=== PATIENT | female | born 1965 | race Caucasian/White ===

== ENCOUNTER 2020-09-06 11:55 | Outpatient (CLI) | payer OTHER, SELFPAY ==
--- NOTE | 2020-09-06 12:00 | MM_ITS ---
WS: [id number] BILATERAL SCREENING DIGITAL MAMMOGRAM WITH CAD HISTORY: SCREENING COMPARISON: 10/22/2017 and 10/08/2017 Bilateral CC and MLO views submitted. Computer aided detection analyzed. Breast composition: There are scattered areas of fibroglandular density. No suspicious masses, microc alcifications or architectural distortion. Asymmetric fibroglandular tissue in the LEFT breast. No fulton spicious masses or interval change. MM/[id number] IMPRESSION: BI-RADS: 2-Benign FOLLOW UP: 1 Year Follow-up
== END 2020-09-06 11:56 | disposition home or self-care (01) ==
LOC: RADSHAW 12:00
PROVIDERS: PCP Nurse Practitioner Family; Visit Provider Nurse Practitioner Family
DX: Z12.31 Encounter for screening mammogram for malignant neoplasm of breast (principal)
CPT/HCPCS: 77067

== ENCOUNTER 2022-01-02 01:01 | Observation (INO) | payer OTHER, SELFPAY ==
[2022-01-02] VITALS (10 sets, daily range): BP systolic 105–140; BP diastolic 58–94; PULSE 58–86; RESP 14–24; TEMP 36.6–36.7; O2SAT 95–97; BMI 36.8
--- NOTE | 2022-01-02 01:42 | ECG_ITS ---
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 Measurements Intervals [place] Rate: 63 P: 51 MI: 145 QRS: 56 QRSD: 93 T: 14 QT: 390 QTc: 400 Interpretive Statements SINUS RHYTHM POSSIBLE LEFT ATRIAL ENLARGEMENT [-0.1mV P-WAVE IN V1/V2] No previous ECG available for comparison Electronically Signed On 01-02-2022 7:36:46 CDT by Anselmo Gil M.D. [email or web address]
--- NOTE | 2022-01-02 01:42 | USCV_ITS ---
Janelle Cain Age: 56 Gender: F : 1965 Exam Date: 01/02/2022 04:39 Ordering Phys: Lars Modi MD Technologist: Halima Duran [place] [facility] [place]ication: Afib BP: 119 / 67 HR: 64 Rhythm: Sinus Technical Quality: Adequate MEASUREMENTS (Male / Female) Normal Values 2D ECHO LV Diastolic Diameter PLAX 3.5 cm 4.2 - 5.9 / 3.9 - 5.3 cm LV Systolic Diameter PLAX 2.7 cm LV Chamber Size 3.0 cm IVS Diastolic Thickness 1.1 cm 0.6 - 1.0 / 0.6 - 0.9 cm IVS Systolic Thickness 1.0 cm LVPW Diastolic Thickness 1.4 cm 0.6 - 1.0 / 0.6 - 0.9 cm LVPW Systolic Thickness 1.3 cm RV Chamber Size 3.6 cm LVOT Diameter 2.0 cm LV Ejection Fraction 2D Teich 49.3 % LV Ejection Fraction MOD 2C 74.0 % LV Ejection Fraction 2C AL 75.3 % LA Diameter 2.8 cm LA Width 2.6 cm LA Height 3.7 cm RA Width 3.1 cm RA Height 2.9 cm Aorta at Sinotubular Diameter 3.1 cm IVC Diameter 1.5 cm M-MODE Aortic Annulus Diameter 2.9 cm LA Ao Ratio MM 1.0 MV E Point Septal Separation 0.3 cm DOPPLER AV Peak Velocity 145.0 cm/s LVOT Peak Velocity 128.0 cm/s AV Area Cont Eq vti 3.5 cm squared AV Area Cont Eq pk 2.8 cm squared MV Area PHT 2.9 cm squared Mitral E to A Ratio 1.4 MV E' Velocity 57.0 cm/s Mitral E to MV E' Ratio 10.3 Mitral E to LV E' Lateral Ratio 8.9 Mitral E to LV E' Septal Ratio 12.1 TR Peak Velocity 161.3 cm/s TR Peak Gradient 10.4 mmHg TR Mean Velocity 110.5 cm/s TR Mean Gradient 5.6 mmHg TR Velocity Time Integral 37.9 cm TV Peak E Velocity 67.0 cm/s Right Atrial Pressure 3.0 mmHg Pulmonary Artery Systolic Pressu 13.4 mmHg RV Acceleration Time 0.1 s RV Ejection Time 0.3 s RV AcT/ET 0.4 FINDINGS Left Ventricle Normal left ventricular size, systolic function and wall thickness, with no regional wall motion abnormalities. Normal left ventricular wall thickness. Normal diastolic filling pattern. Left ventricular ejection fraction is estimated at 65 %. Right Ventricle The right ventricle is normal in size and function. Right Atrium The right atrium is normal in size. Left Atrium The left atrium is normal in size. Mitral Valve Structurally normal mitral valve without significant stenosis or prolapse. There is no mitral regurgitation. Aortic Valve Structurally normal aortic valve without significant sclerosis or stenosis. There is no aortic regurgitation. Tricuspid Valve Structurally normal tricuspid valve without significant stenosis or regurgitation. Pulmonary artery systolic pressure is normal. Pulmonic Valve Structurally normal pulmonic valve without significant stenosis. There is no pulmonic regurgitation. Pericardium Normal pericardium without effusion. Aorta Normal ascending aorta dimension. IVC The inferior vena cava appears normal. CONCLUSIONS Normal transthoracic echocardiogram. There are no prior echocardiogram studies to compare. Dr. Anselmo Gil MD (Electronically Signed) Final Date: 02 January 2022 07:11 S
--- NOTE | 2022-01-02 01:45 | P.HP_ITS ---
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 Patient tells me that today at roughly 730, she developed chest palpitations, followed by diaphoresis, lightheadedness, denies passing out. 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 She has been having allergy-like symptoms and using Sudafed up to twice a day, she does report caffeine use, 1 large cup of coffee a day. Denies any history of hyperthyroidism, denies any history of drug use, denies a history of alcoholism. In the emergency room she was found to have A. fib with RVR, heart rates in the high 200s, no hemodynamic compromise was given adenosine, eventually placed on a Cardizem drip, and transferred to [facility] for evaluation. Currently she is converted to normal sinus rhythm, off Cardizem drip, alert oriented x3, heart rates in the 60s, atrial fibrillation, normotensive, denies any chest pain, palpitations, shortness of breath. Review of Systems Const: Denies: fever(s) Eyes: Denies: change in vision Card: Reports: palpitations; Denies: chest pain Resp: Denies: dyspnea GI: Denies: abdominal pain Musc: Denies: back pain Neuro: Denies: headache(s), numbness in extremities, weakness in extremities or difficulty walking Medications/Allergies Home Medications Medication Instructions Recorded Confirmed Last Taken Type amoxicillin 875 mg-potassium 1 tab PO BID 01/02/22 01/02/22 Unknown History clavulanate 125 mg tablet doxycycline hyclate 50 mg tablet 50 mg PO DAILY 01/02/22 01/02/22 Unknown History hydrochlorothiazide 12.5 mg tablet 12.5 mg PO DIRECTED PRN 01/02/22 01/02/22 Unknown History Hypertension Allergies Allergy/AdvReac Type Severity Reaction Status Date / Time Sulfa (Sulfonamide Allergy Intermediate ALGY-Hives Verified 01/02/22 01:17 Antibiotics) PFSH Acute PFSH: Medical History (Updated 01/02/22 @ 01:49 by Lars Modi MD) History of obesity Hypertension Surgical History (Updated 01/02/22 @ 01:48 by Lars Modi MD) History of bladder surgery Family History (Updated 01/02/22 @ 01:49 by Lars Modi MD) Family/Other Diabetes Stroke Social History (Updated 01/02/22 @ 01:49 by Lars Modi MD) Smoking and tobacco status: never smoked Alcohol intake: current Alcohol intake frequency: few times a month Substance/Drug Use: never Vitals/I&O/Wt Weight last 48 hrs Weight 103.419 kg Physical Exam Const: COMMON NORMALS: no acute distress and patient oriented x3 HENMT: COMMON NORMALS: normocephalic HEAD & SCALP: normocephalic Neck/C-Spine: COMMON NORMALS: no JVD Resp: COMMON NORMALS: normal respiratory effort, No retractions, No use of accessory muscles and clear to auscultation bilaterally AUSCULTATION: clear to auscultation bilaterally Cardio: COMMON NORMALS: no JVD, regular rate, regular rhythm, S1 normal heart sound present and S2 normal heart sound present RATE: regular rate RHYTHM: regular rhythm HEART SOUNDS: S1 normal heart sound present and S2 normal heart sound present GI: COMMON NORMALS: Normal to inspection, nondistended, normoactive bowel sounds present, Soft to palpation, non-tender, No hepatosplenomegaly present, no masses and no bruits PALPATION: Yes Soft to palpation and Yes No hepatosplenomegaly present Extremity: COMMON NORMALS: capillary refill normal, no clubbing, cyanosis or edema, no calf tenderness and no pedal edema Neuro: COMMON NORMALS: patient oriented x3, CN's II-XII intact bilaterally and moves all extremities Psych: COMMON NORMALS: mental status grossly normal A&P Assessment and plan (1) New onset atrial fibrillation: Status: Acute Plan New onset atrial fibrillation -Etiology, potentially Sudafed use, caffeine use, stress -TSH was slightly high with normal T4 -Magnesium within normal limits -We will reorder troponin series, but troponin from [facility] was unremarkable -We will order cardiac echo -Currently converted to normal sinus rhythm, continue Cardizem 30 every 6 hours -She tells me that she is prehypertensive but she is had a couple of elevated blood pressures for which her primary care provider has been giving her hydrochlorothiazide intermittently, -Her [id number] score is 1-2 if she is hypertensive or not -We will start her on therapeutic Lovenox, switch to Eliquis on discharge -Needs to follow-up with cardiology as outpatient -Stop caffeine use, stop Sudafed use, decrease stress, consider stress test as outpatient -Full code -Lovenox for DVT prophylaxis Attestations Medical Necessity Statement*: Patient requires hospitalization, outpatient with observation, for new onset atrial fibrillation Coding Level of Care Code Acute [employer] for Lolita Pruitt Diagnoses New onset atrial fibrillation I48.91
[2022-01-02] MEDS: dilTIAZem 30 mg Tablet PO ×2 (02:19→08:59)
[2022-01-02] MEDS: acetaminophen 325 mg Tablet 650 MG PO ×2 (02:19→09:12)
[2022-01-02] MEDS: enoxaparin 100 mg/mL Syringe SUBCUT (02:20)
[2022-01-02 03:12] LABS: Troponin(5th) Baseline 16 ng/L (0-10)
[2022-01-02 03:21] LABS: Chol HDL Ratio 1.95 mg/dL (0.0-4.40); Cholesterol 125 mg/dL (0-200); HDL Cholesterol 64 mg/dL (60-100); LDL Cholesterol Calculated 47 mg/dL (50-129); LDL HDL Ratio 0.73 RATIO (0.00-3.22); NT Pro B Type Natriuretic Pept 355 pg/mL (0-125); Triglycerides 68 mg/dL (0-150)
[2022-01-02 03:46] LABS: Estmated Average Glucose 108; Hemoglobin A1C 5.4 % (4.0-6.0)
[2022-01-02 04:46] LABS: Troponin 5 2HR 16.13 ng/L (0-10)
[2022-01-02 04:48] LABS: Troponin 5 2HR Delta 0.13 ABS# (0-10)
--- NOTE | 2022-01-02 05:46 | ECG_ITS ---
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 Measurements Intervals [place] Rate: 62 P: 55 MI: 147 QRS: 63 QRSD: 97 T: 45 QT: 417 QTc: 424 Interpretive Statements SINUS RHYTHM Compared to ECG 01/02/2022 03:44:47 No significant changes Electronically Signed On 01-02-2022 7:40:07 CDT by Anselmo Gil M.D. [id number]
[2022-01-02 07:32] LABS: Add Urine Microscopic? NO; Charge for UA Resulting for Rev
[2022-01-02 07:37] LABS: Urine Appearance Clear (CLEAR); Urine Color Yellow (Yellow); pH Urine 6 (5-7)
[2022-01-02 07:38] LABS: Bilirubin Urine Neg (Negative); Blood Urine Neg (Negative); Glucose Urine UA Norm (Normal); Ketones Urine Negative (Negative); Leukocyte Esterase Urine Negative (Negative); Nitrate Urine Negative (Negative); Protein Urine Neg (Negative); Urobilinogen Urine Norm (Negative)
[2022-01-02] MEDS: pantoprazole DR 40 mg Tablet PO (08:59)
[2022-01-02 09:07] LABS: Troponin 5 6HR 10.97 ng/L (0-10)
[2022-01-02 09:10] LABS: Troponin 5 6HR Delta -5.03 ng/L (0-12)
--- NOTE | 2022-01-02 10:48 | ECG_ITS ---
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 Measurements Intervals [place] Rate: 64 P: 61 NH: 151 QRS: 62 QRSD: 98 T: 45 QT: 394 QTc: 409 Interpretive Statements SINUS RHYTHM POSSIBLE LEFT ATRIAL ENLARGEMENT [-0.1mV P-WAVE IN V1/V2] Compared to ECG 01/02/2022 05:46:31 No significant changes Electronically Signed On 01-02-2022 18:35:11 CDT by Andrew Villanueva M.D. [id number]
--- NOTE | 2022-01-02 11:49 | PC.NURSE ---
ambulation pt up and ambulating down hallway w/. Pt HR is Sinus rhythm HR-upper 80s. denies any pain or chest discomfort or shortness of breath. Dr Valentine notified.
--- NOTE | 2022-01-02 12:04 | PM.DCS ---
Discharge Providers Date of Admission: 01/02/22 01:01 Date of Discharge: January 02, 2022 Attending Provider at Admission: Lars Modi MD Attending Provider at Discharge: Yvette Valentine MD Primary Care Provider: Darby Delgadillo APN Diagnoses at Discharge Discharge Diagnosis (1) New onset atrial fibrillation: Status: Acute Reason for Visit Reason for Visit: afib rvr Brief History: Please see Dr. Modi's dictated H&P from last night at 1:45 AM. Hospital Course Hospital Course Patient was admitted to the hospital and underwent continuous telemetry monitoring. Since arrival to the floor, patient was noted to be in sinus rhythm. Heart rate has been ranging between 58 to 86 bpm. She has received 2 doses of 30 mg p.o. Cardizem 6 hours apart. Echocardiogram returned normal. Blood pressure in the hospital ranging between 1 20-1 40 systolic. Baseline troponin at 16, 2-hour at 16, 6-hour trending down at 10. Negative delta as. Denies any complains of chest pain. She feels well overall. Since her echocardiogram, troponins are reassuring, symptoms are resolved with no recurrence of A. fib, patient is stable for discharge at this time. An event monitor is being arranged at discharge. As needed hydrochlorothiazide has been discontinued. She is being started on Cardizem 60 mg p.o. twice daily (12-hour release) at discharge. Recommended to maintain a log of her blood pressure and heart rate by checking at least twice a day at the same time every day. Present this log to her primary care provider in 1 week. Instructed to stop pseudoephedrine use. May use Flonase intranasal spray for allergies as needed. Restrict caffeine intake to no more than 2 cups of 8 ounces a day. Her [id number] score currently lies between 1-2, unclear if she carries a diagnosis of hypertension. We will start her on a low-dose aspirin, however if noted to have consistent hypertension based on her blood pressure log over the next week, will likely benefit from anticoagulation. Physical Exam Narrative: General: No acute distress, AO x3 HEENT: PERRLA, pupils bilaterally equal and reactive, pallors not present Chest: Normal vesicular breath sounds, no added sounds, equal good air entry bilaterally CVS: S1-S2 regular, no murmurs, no tachycardia, no gallops, no rubs Abdomen: Soft, nontender, no organomegaly, bowel sounds present Neuro: No focal deficits, no facial deformity, AO x3, power 5/5 in all limbs Discharge Data Studies Completed and Pending Completed Studies During Hospitalization Category Date Time Status CV. echo complete* [id number] Routine Ultrasound 01/02/22 01:42 Completed Laboratory Results Estimat Average Glucose 108 01/02/22 02:22 Hemoglobin A1c 5.4 % (4.0-6.0) 01/02/22 02:22 Troponin T Baseline 16 ng/L (0-10) H 01/02/22 02:22 Troponin T 120 Minute 16.13 ng/L (0-10) H 01/02/22 04:06 Delta Troponin T 0.13 ABS# (0-10) 01/02/22 04:06 Troponin T Hi Sens 6Hr 10.97 ng/L (0-10) H 01/02/22 08:27 Troponin T Hi Sens 6Hr Delta -5.03 ng/L (0-12) L 01/02/22 08:27 NT-Pro-B Natriuret Pep 355 pg/mL (0-125) H 01/02/22 02:22 Triglycerides 68 mg/dL (0-150) 01/02/22 02:22 Cholesterol 125 mg/dL (0-200) 01/02/22 02:22 LDL Cholesterol, Calc 47 mg/dL (50-129) L 01/02/22 02:22 HDL Cholesterol 64 mg/dL (60-100) 01/02/22 02:22 LDL/HDL Ratio 0.73 RATIO (0.00-3.22) 01/02/22 02:22 Cholesterol/HDL Ratio 1.95 mg/dL (0.0-4.40) 01/02/22 02:22 Urine Color Yellow (Yellow) 01/02/22 07:25 Urine Appearance Clear (CLEAR) 01/02/22 07:25 Urine pH 6 (5-7) 01/02/22 07:[address] 1.020 (1.005-1.030) 01/02/22 07:25 Urine Protein Neg (Negative) 01/02/22 07:25 Urine Glucose (UA) Norm (Normal) 01/02/22 07:25 Urine Ketones Negative (Negative) 01/02/22 07:25 Urine Blood Neg (Negative) 01/02/22 07:25 Urine Nitrate Negative (Negative) 01/02/22 07:25 Urine Bilirubin Neg (Negative) 01/02/22 07:25 Urine Urobilinogen Norm mg/dL (Negative) 01/02/22 07:25 Ur Leukocyte Esterase Negative (Negative) 01/02/22 07:25 Vitals Last Vital Signs Temp 97.9 F 01/02/22 11:27 Pulse 67 01/02/22 11:27 Resp 18 01/02/22 11:27 BP 125/76 01/02/22 11:27 Pulse Ox 96 01/02/22 11:27 O2 Del Method 01/02/22 11:27 O2 Flow Rate 2 01/02/22 04:18 Discharge Plan Discharge Patient Disposition: Home Prescriptions: New aspirin [Adult Aspirin Regimen] 81 mg tablet,delayed release (DR/EC) 81 mg PO DAILY Qty: 30 0RF diltiazem HCl 60 mg capsule,extended release 12 hr 60 mg PO BID 30 Days Qty: 60 0RF Discontinued hydrochlorothiazide 12.5 mg Tablet 12.5 mg PO DIRECTED PRN (Reason: Hypertension) amoxicillin-pot clavulanate 875-125 mg Tablet 1 tab PO BID doxycycline hyclate 50 mg Tablet 50 mg PO DAILY Discharge Orders: Discharge Order (Routine); Ordered 01/02/22 Ordered By: Yvette Valentine Other Ambulatory Orders: MCT/Event Monitor 14 Days (Routine) Timeframe: [id number] Facility: [facility] - Location: Radiology Ordered By: Yvette Valentine Discharge Diet: Usual diet Discharge Activity: Resume usual activity Patient Instructions: Opioid Safety Activity Restrictions/Additional Instructions: Please maintain a chart of your blood pressure and heart rate by checking twice a day, 12 hours apart and bring this log to your primary care physician for review in 1 week. If heart rate is less than 60, or blood pressure top number is less than 100, stop the use of Cardizem. Present to the emergency room in case of recurrence of symptoms. Do not use pseudoephedrine. Prefer to use Flonase intranasal spray for allergies. May use once a day Claritin or Carri as needed as an alternative if symptoms of sinusitis are extremely bothersome and not controlled with Flonase and Tylenol/ibuprofen. Limit caffeine intake as much as possible. Okay to resume light aerobic exercise. Avoid lifting heavy weights or squats while cardiology evaluation is ongoing. Discharge Attestations Time Spent in Discharge Care*: greater than 30 min Quality Metrics Clinical Quality Measures [ No reported AMI, CVA or VTE this stay] Coding Level of Care Code Acute [facility] [place] note Diagnoses New onset atrial fibrillation I48.91
--- NOTE | 2022-01-02 13:08 | PC.NURSE ---
Meds to bed at [facility] main
== END 2022-01-02 14:25 | disposition home or self-care (01) ==
PROVIDERS: Admitting Provider Family Medicine; PCP Nurse Practitioner Family; Visit Provider Student in an Organized Health Care Education/Training Program
DX: I48.91 Unspecified atrial fibrillation (principal); I10 Essential (primary) hypertension; E66.9 Obesity, unspecified; Z68.36 Body mass index [BMI] 36.0-36.9, adult
CPT/HCPCS: 36415; 80061; 81003; 83036; 83880; 84484; 93005; 93306; 94664; 96372; G0378; G0379; J1650

== ENCOUNTER 2023-09-12 08:51 | Outpatient (CLI) | payer OTHER, SELFPAY ==
--- NOTE | 2023-09-12 09:00 | MM_ITS ---
WS: [id number] BILATERAL SCREENING DIGITAL TOMOSYNTHESIS MAMMOGRAM WITH CAD HISTORY: SCREENING COMPARISON: 09/06/2020, 10/22/2017 Bilateral CC and MLO views with tomosynthesis and synthetic mammography submitted. Computer aided det ection analyzed. Breast composition: There are scattered areas of fibroglandular density. No suspicious masses, microc alcifications or architectural distortion. Asymmetric LEFT breast tissue is similar to prior studies. MM/[id number] IMPRESSION: BI-RADS: 2-Benign FOLLOW UP: 1 Year Follow-up
== END 2023-09-12 08:52 | disposition home or self-care (01) ==
LOC: RAD 08:51
PROVIDERS: PCP Nurse Practitioner Family; Visit Provider Nurse Practitioner Family
DX: Z12.31 Encounter for screening mammogram for malignant neoplasm of breast (principal); R92.323 Mammographic fibroglandular density, bilateral breasts
CPT/HCPCS: 77063; 77067